=== PATIENT | female | born 1950 | race Caucasian/White ===

== ENCOUNTER 2023-07-29 21:21 | Emergency (ER) | payer MEDICARE, OTHER, SELFPAY ==
[2023-07-29 21:23] VITALS: BP 174/76
[2023-07-29 21:38] LABS: % Basophils 0.4 % (0-2); % Eosinophils 3.3 % (0-6); % Immature Granulocytes 0.4 % (0-0.5); % Monocytes 7.4 % (1.7-9.3); % Neutrophils 68.5 % (42.2-75.2); Absolute Eosinophils 0.2 10^3/uL (0-0.7); Absolute Lymphocytes 1.4 10^3/uL (1.2-3.4); Absolute Monocytes 0.5 10^3/uL (0.1-0.6); Absolute Neutrophils 4.7 10^3/uL (1.4-6.5); Hematocrit 36.7 % (37.0-47.0); Hemoglobin 12.2 g/dL (12.0-16.0); Mean Corp Hgb Conc. 33.2 g/dL (33.0-37.0); Mean Corpuscular Hgb 30.6 pg (27.0-31.0); Mean Platelet Volume 9.6 fL (7.4-10.4); Nucleated Red Blood Cells % 0 %; Platelet Count 202 10^3/uL (130-400); Red Blood Cell Count 3.99 10^6/uL (4.20-5.40); Red Cell Dist. Width 12.6 % (11.5-14.5); White Blood Cell Count 6.9 10^3/uL (4.8-10.8)
[2023-07-29 21:59] LABS: ALT (SGPT) 33 U/L (0-35); AST (SGOT) 31 U/L (14-36); Albumin 4.3 g/dl (3.5-5.0); Alkaline Phosphatase 102 U/L (38-126); Blood Urea Nitrogen 35 mg/dl (7-17); Calcium 10.2 mg/dl (8.4-10.2); Carbon Dioxide 29 mmol/L (22-30); Chloride 105 mmol/L (98-107); Glucose 117 mg/dl (70-99); Potassium 4.7 mmol/L (3.5-5.1); Sodium 139 mmol/L (135-145); Total Bilirubin 0.3 mg/dl (0.2-1.3); Total Protein 7.4 g/dl (6.3-8.2)
[2023-07-29 23:25] VITALS: BP 151/74
--- NOTE | 2023-07-29 23:42 | ED.GENMED ---
History of Present Illness
General
Chief Complaint: Abdominal Symptoms
Source: patient
Exam Limitations: none
Time Seen by Provider: 07/29/23 23:16
Travel History
Have you had any contact with someone who has COVID-19?: No
Do you have any symptoms of coronavirus? Fever > 100 degrees, chills, cough, shortness of breath, sore throat, loss of taste or smell, muscle aches, or headache?: No
History of Present Illness
History of Present Illness:
This is a 73 year old female that comes in with c/o diarrhea. States that this started about a month ago and at first it was on and off. Then 2 weeks ago it got worse. States that last week on she went to see the PCP and they thought it was
due to medication so they stopped the medication. States that yesterday and today the diarrhea has gotten worse and if she doesn't take the Imodium she is in the bathroom every 10 min. States that she took the Imodium at 8pm and doesn't feel she
can given a stool spec. States that she wouldn't have made it here without taking it. States that she is nauseated and her stomach is making such noise. Denies any fever, chills, chest pain, SOB, vomiting, headache, dizziness, urinary burning.
Past History
Past History
ED Past Medical History: Cancer (Uterine CA, Breast CA with Lumpectomy), HTN, Hypercholesterolemia, Hypothyroidism and Other (peripheral neuropathy, Sleep apnea, )
ED Past Surgical History: , Gynecological (Hysterectomy , Right breast Lumpectomy and radiation, ), Orthopedic (Left kne replacement, ) and Other (Bilateral Cataract)
Social History
Tobacco: Non-smoker
Alcohol: Occasional
Personal:
Living: with family
Review of Systems
Review of Systems
All Other Systems: ROS reviewed and negative except as documented in HPI and ROS
Constitutional: Reports no symptoms; Denies fever or chills
EENT: Reports no symptoms
Respiratory: Reports no symptoms; Denies cough or trouble breathing
Cardiac: Reports no symptoms; Denies chest pain
ABD/GI: Reports nausea and diarrhea; Denies abdominal pain or vomiting
: Reports no symptoms; Denies dysuria, frequency or urgency
Musculoskeletal: Reports no symptoms
Skin: Reports no symptoms
Neurological: Reports no symptoms; Denies dizzy or headache
Psychiatric: Reports no symptoms
Phy Exam
General Physical Exam
General Presentation: no apparent distress
General age: appears stated age
General Skin: warm and dry
General Habitus: elderly
General Mental: alert
General Hydration: dry mucous membranes
ENT Exam
ENT Exam: TM's normal, pharynx normal and neck supple
Eye Exam
Eye Exam: EOMI
Cardiovascular Exam
Cardiovascular Exam: regular rate/rhythm, no edema, no murmur and normal peripheral pulses
Pulmonary Exam
Pulmonary Exam: lungs clear, no respiratory distress, no rales, chest non tender, no crackles, no rhonchi, no wheezing and no cough
Gastrointestinal Exam
Gastrointestinal Exam: normal bowel sounds, non tender, soft, no organomegaly, no pulsatile mass, non distended and other (Obese)
Musculoskeletal Exam
Musculoskeletal Exam: full ROM and no edema
Skin Exam
Skin Exam: normal color, warm/dry, no rash and no petechia
Psychiatric Exam
Psychiatric Exam: normal mood/affect
Course
Orders/Labs/Results
Orders:
Orders
07/29/23 21:32
CMP [Comprehensive Metabolic Panel] Urgent
Complete Blood Count/With Diff Urgent
07/29/23 23:41
0.9% Sodium Chloride 1000 ml [Nss] 1,000 ml IV BOLUS
07/30/23 00:00
CT Abd/pelvis W Iv Cont Urgent
Reason For Exam: Diarrhea, nausea, pain
Abnormal Lab Results
07/29/23
21:32
RBC 3.99 L 10^6/uL
(4.20-5.40)
Hct 36.7 L %
(37.0-47.0)
Lymphocytes % 20.0 L %
(20.5-51.1)
BUN 35 H mg/dl
(7-17)
Creatinine 1.1 H mg/dL
(0.6-1.0)
Glucose 117 H mg/dl
(70-99)
07/29/23 21:32
07/29/23 21:32
Dehydration, Glucose nonfasting,
Vital Signs
Initial and Last Documented VS:
Initial Vital Signs
Temp Pulse Resp BP Pulse Ox
98.9 F 74 24 174/76 100
07/29/23 21:23 07/29/23 21:23 07/29/23 21:23 07/29/23 21:23 07/29/23 21:23
Last Documented Vital Signs
Temp Pulse Resp BP Pulse Ox
98.9 F 74 24 151/74 97
07/29/23 21:23 07/29/23 21:23 07/29/23 21:23 07/29/23 23:25 07/29/23 23:25
MDM/Problems Addressed
Differential Diagnosis Includes:
Colitis, Dehydration. C-diff
MDM/Problems Addressed:
This is a 73 year old female that comes in with c/o diarrhea. States that for a month it was on and off. Then in the past 2 weeks this has gotten worse and today and yesterday she is having diarrhea ever 10 min if she doesn't take the Imodium.
Will check labs, give IV fluids and CT to r/o an inflammatory issues.
Back into see patient. Explained that there is no sign of colitis or diverticulitis, There are renal cyst on the both kidneys that are to small to characterize. Patient can follow up with the Family doctor for further evaluation. Was unable to find
outpatient slip for Stool for C-diff and culture. Patient will need to see the Family doctor and her GI specialist. Patient to increase her water intake to 8-8o glasses daily. Return with any concerns.
Chronic conditions affecting care:
NA
Acute Exacerbation and/or Progression of Chronic Illness:
NA
*Radiology
Radiology exam reviewed: radiology read reviewed (CT night hawk- NO acute findings in the abdomen. NO evidence of diverticulitis or colitis. NOrmal appendix. No bowel obstruction. NO free air. Cholecystectomy. No CT signs of pancreatitis. Multiple
small bilateral renal hypoattenuating lesions, some simple cyst and others too small to characterize.) and other (CT cont- Some are intermediate density and indeterminate. Consider nonemergency renal mass protocol CT or MRI. NO concerning bone
findings. )
*Pulse Oximetry
Patient hypoxic: no
*EKG
Interpreted by ED Provider?: NA
Rate: EKG- N/A
*Adjunct Nursing Faculty Interpretation
Rate: bradycardiac
Heart Rate: 55
Rhythm: sinus (Aurelio)
*Critical Care Note
Total Time (30-74mins, 75-104mins- exclusive of procedures): Not Applicable
ED Attending Note
-
Portions of this chart may have been created with voice recognition software.� Occasional wrong word or��sound alike� substitutions may have occurred due to the inherent limitations of voice recognition software.
Discharge Plan
Departure
Patient Disposition: Home (Routine Discharge)
Date of Disposition: 07/30/23
Time of Disposition: 01:19
Patient with high blood pressure during this ER visit?: Yes
Condition: Good
Covid-19: Not Applicable
Discharge Problem:
Diarrhea
Instructions: Diarrhea in adolescents and adults
Prescriptions:
No Action
losartan 50 MG tablet
100 mg PO DAILY
atenolol 25 MG tablet
25 mg PO DAILY
levothyroxine 75 MCG tablet
75 mcg PO DAILY
triamterene-hydrochlorothiazid 1 EACH tablet
1 ea PO DAILY
Patient Comments:
37.5/25 mg
vitamin B complex 1 TAB tablet
1 tab PO DAILY
zinc 50 MG tablet
50 mg PO DAILY
duloxetine 20 MG capsule,delayed release(DR/EC)
20 mg PO QPM
alpha lipoic acid 600 MG tablet
600 mg PO DAILY Qty: 0
anastrozole 1 MG tablet
1 mg PO HS
folic acid 0.4 MG tablet
0.4 mg PO DAILY
aspirin 81 MG tablet,delayed release (DR/EC)
81 mg PO DAILY
niacin 100 MG tablet
250 mg PO DAILY
cholecalciferol (vitamin D3) 1,000 UNITS tablet
1,000 units PO DAILY
pramipexole [Mirapex ER] 0.375 MG tablet extended release 24 hr
0.375 mg PO HS
pravastatin 40 MG tablet
40 mg PO QPM
calcium carbonate [calcium] 500 MG tablet
2,000 mg PO DAILY
vitamin B complex 1 TAB tablet
1 tab PO DAILY
cannabidiol [Epidiolex] 1 UNIT solution
1 unit PO HSPRN PRN (Reason: Insomnia)
oxycodone-acetaminophen 5 MG/325 MG tablet
1 tab PO Q4HPRN PRN (Reason: moderate to severe pain) Qty: 6 0RF
Referrals:
Myesha Mitchell MD [Family Provider] - Follow up in 2-3 days
Activity Restrictions/Additional Instructions:
As discussed, your blood work here shows that you are dehydrated. Please increase your water intake to 8-8oz glasses daily. Please follow up with the family doctor for further testing such as a stool culture, Stool for C-diff and WBC's. It was also
noted on the CT scan that you have bilateral renal cyst that are to small to characterize. This can also be further evaluated by the Family doctor. Continue with the Imodium as directed. Follow up with the GI specialist for further evaluation. IF
YOU HAVE ANY OTHER CONCERNS PLEASE RETURN TO THE EMERGENCY ROOM.
Interventions
Interventions:
*Risk Screen - Suicide Last Done: 07/29/23 21:23
*Neglect/Abuse Screening Last Done: 07/29/23 21:23
Discharge Date and Time
Print Language: LEBANESE
[2023-07-29] MEDS: NSS 1000 IV (23:48)
[2023-07-30 01:28] VITALS: BP 170/68
== END 2023-07-30 01:50 | disposition home or self-care (01) ==
LOC: EMR 21:21
PROVIDERS: EMERGENCY PHYSICIAN Emergency Medicine; FAMILY PHYSICIAN Family Medicine
DX: R19.7 Diarrhea, unspecified (principal); R11.0 Nausea; N28.1 Cyst of kidney, acquired; I10 Essential (primary) hypertension; E78.00 Pure hypercholesterolemia, unspecified; E03.9 Hypothyroidism, unspecified; G62.9 Polyneuropathy, unspecified; G47.30 Sleep apnea, unspecified; Z85.3 Personal history of malignant neoplasm of breast; Z85.42 Personal history of malignant neoplasm of other parts of uterus; Z96.652 Presence of left artificial knee joint
CPT/HCPCS: 99285; 96360; 74177; 80053; 85025; Q9967

== ENCOUNTER → 2023-08-01 11:24 | Outpatient (REF) | payer MEDICARE, OTHER, SELFPAY | LOC: REG 11:24 | PROVIDERS: ATTENDING PHYSICIAN Family Medicine | DX: K52.9 Noninfective gastroenteritis and colitis, unspecified (principal) | CPT/HCPCS: 87045; 87046; 87324; 87427; 87449 ==

== ENCOUNTER → 2023-08-02 15:03 | Outpatient (REF) | payer MEDICARE, OTHER, SELFPAY | LOC: REG 15:03 | PROVIDERS: ATTENDING PHYSICIAN Family Medicine | DX: K52.9 Noninfective gastroenteritis and colitis, unspecified (principal) | CPT/HCPCS: 87045; 87046; 87077; 87324; 87427; 87449 ==

== ENCOUNTER → 2023-11-15 07:30 | Outpatient (REF) | payer MEDICARE, OTHER, SELFPAY | LOC: HWRAD 07:30 | PROVIDERS: ATTENDING PHYSICIAN Internal Medicine; FAMILY PHYSICIAN Family Medicine | DX: R15.2 Fecal urgency (principal); K52.9 Noninfective gastroenteritis and colitis, unspecified; R19.8 Other specified symptoms and signs involving the digestive system and abdomen | CPT/HCPCS: 74019 ==

== ENCOUNTER → 2023-11-16 07:59 | Outpatient (REF) | payer MEDICARE, OTHER, SELFPAY ==
[2023-11-16 10:46] LABS: CRP, Highly Sensitive 12.15 mg/L
[2023-11-16 11:04] LABS: TSH 2.44 uIU/ml (0.47-4.68)
[2023-11-19 00:32] LABS: IgA 321 mg/dl (70-400)
== END ==
LOC: REG 07:59
PROVIDERS: ATTENDING PHYSICIAN Internal Medicine; FAMILY PHYSICIAN Family Medicine
DX: K52.9 Noninfective gastroenteritis and colitis, unspecified (principal); Z74.09 Other reduced mobility; E78.5 Hyperlipidemia, unspecified
CPT/HCPCS: 36415; 82784; 83516; 83993; 84443; 86141; 86231; 87045; 87046; 87328; 87329; 87427

== ENCOUNTER → 2023-12-06 06:25 | Day surgery (SDC) | payer MEDICARE, OTHER, SELFPAY | LOC: GI 06:25 | PROVIDERS: ATTENDING PHYSICIAN Internal Medicine | DX: K52.832 Lymphocytic colitis (principal); K64.8 Other hemorrhoids; K52.9 Noninfective gastroenteritis and colitis, unspecified; K57.30 Diverticulosis of large intestine without perforation or abscess without bleeding; K62.3 Rectal prolapse | CPT/HCPCS: 45380; 88305 ==

== ENCOUNTER → 2024-03-17 11:40 | Outpatient (REF) | payer MEDICARE, OTHER, SELFPAY | LOC: WDC 11:40 | PROVIDERS: ATTENDING PHYSICIAN Family Medicine | DX: Z12.31 Encounter for screening mammogram for malignant neoplasm of breast (principal) | CPT/HCPCS: 77063; 77067 ==

== ENCOUNTER → 2024-03-20 08:58 | Outpatient (REF) | payer MEDICARE, OTHER, SELFPAY | LOC: WDC 08:58 | PROVIDERS: ATTENDING PHYSICIAN Family Medicine | DX: R92.8 Other abnormal and inconclusive findings on diagnostic imaging of breast (principal) | CPT/HCPCS: 76642 ==

== ENCOUNTER → 2024-04-30 08:26 | Outpatient (REF) | payer MEDICARE, OTHER, SELFPAY ==
[2024-04-30 09:22] LABS: % Basophils 0.7 % (0-2); % Eosinophils 3.2 % (0-6); % Immature Granulocytes 0.4 % (0-0.5); % Lymphocytes 19.9 % (20.5-51.1); % Neutrophils 68.8 % (42.2-75.2); Absolute Eosinophils 0.2 10^3/uL (0-0.7); Absolute Lymphocytes 1.1 10^3/uL (1.2-3.4); Absolute Monocytes 0.4 10^3/uL (0.1-0.6); Absolute Neutrophils 3.9 10^3/uL (1.4-6.5); Hematocrit 37.2 % (37.0-47.0); Mean Corp Hgb Conc. 32.3 g/dL (33.0-37.0); Mean Corpuscular Hgb 30.6 pg (27.0-31.0); Mean Corpuscular Volume 94.9 fL (81.0-99.0); Mean Platelet Volume 9.9 fL (7.4-10.4); Nucleated Red Blood Cells % 0 %; Platelet Count 210 10^3/uL (130-400); Red Blood Cell Count 3.92 10^6/uL (4.20-5.40); Red Cell Dist. Width 13.3 % (11.5-14.5); White Blood Cell Count 5.6 10^3/uL (4.8-10.8)
[2024-04-30 10:35] LABS: ALT (SGPT) 29 U/L (0-35); AST (SGOT) 28 U/L (14-36); Albumin 4.2 g/dl (3.5-5.0); Alkaline Phosphatase 70 U/L (38-126); Blood Urea Nitrogen 44 mg/dl (7-17); Calcium 10.2 mg/dl (8.4-10.2); Carbon Dioxide 29 mmol/L (22-30); Chloride 104 mmol/L (98-107); Glucose 95 mg/dl (70-99); HDL Cholesterol 48 mg/dl; LDL Cholesterol, Calculated 85 mg/dl; Potassium 5.1 mmol/L (3.5-5.1); Sodium 143 mmol/L (135-145); Total Bilirubin 0.5 mg/dl (0.2-1.3); Total Cholesterol 159 mg/dl (50-199); Triglyceride 134 mg/dl (10-149); Very Low Density Lipoprotein 26 mg/dl (0-30); eGFR 46.91
[2024-04-30 11:09] LABS: TSH Reflex To Free T4 2.68 uIU/ml (0.47-4.68)
== END ==
LOC: REG 08:26
PROVIDERS: ATTENDING PHYSICIAN Family Medicine
DX: E03.9 Hypothyroidism, unspecified (principal); R73.03 Prediabetes; I10 Essential (primary) hypertension; R73.9 Hyperglycemia, unspecified
CPT/HCPCS: 36415; 80053; 80061; 83036; 84443; 85025

== ENCOUNTER → 2024-06-04 09:22 | Outpatient (REF) | payer MEDICARE, OTHER, SELFPAY ==
[2024-06-04 12:09] LABS: Blood Urea Nitrogen 42 mg/dl (7-17); Calcium 9.7 mg/dl (8.4-10.2); Carbon Dioxide 27 mmol/L (22-30); Chloride 102 mmol/L (98-107); Glucose 89 mg/dl (70-99); Sodium 139 mmol/L (135-145); eGFR 46.91
== END ==
LOC: REG 09:22
PROVIDERS: ATTENDING PHYSICIAN Family Medicine
DX: R79.89 Other specified abnormal findings of blood chemistry (principal)
CPT/HCPCS: 36415; 80048

== ENCOUNTER → 2024-06-11 11:15 | Outpatient (REF) | payer MEDICARE, OTHER, SELFPAY | LOC: HWRAD 11:15 | PROVIDERS: ATTENDING PHYSICIAN Family Medicine; REFERRING PHYSICIAN Internal Medicine Nephrology | DX: N28.9 Disorder of kidney and ureter, unspecified (principal) | CPT/HCPCS: 76770 ==

== ENCOUNTER → 2024-08-20 08:47 | Outpatient (REF) | payer MEDICARE, OTHER, SELFPAY ==
[2024-08-20 09:53] LABS: Urine Albumin Negative (Neg - Trace); Urine Bilirubin Negative (Negative); Urine Character Clear (Clear); Urine Color Yellow; Urine Glucose Negative (Negative); Urine Ketone Negative (Negative); Urine Leukocyte 2+ (Negative); Urine Nitrite Negative (Negative); Urine Occult Blood Negative (Negative); Urine Urobilinogen Negative (Neg - 1+); Urine pH 6.5 (5.0-9.0)
[2024-08-20 10:34] LABS: Urine Bacteria Many (Negative)
[2024-08-20 11:14] LABS: Protein/creatinine Ratio 0.1; Urine Protein 8 mg/dl
[2024-08-20 11:15] LABS: ALT (SGPT) 27 U/L (0-35); AST (SGOT) 27 U/L (14-36); Albumin 4.6 g/dl (3.5-5.0); Alkaline Phosphatase 61 U/L (38-126); Blood Urea Nitrogen 33 mg/dl (7-17); Carbon Dioxide 28 mmol/L (22-30); Chloride 105 mmol/L (98-107); Glucose 100 mg/dl (70-99); Potassium 5.7 mmol/L (3.5-5.1); Sodium 141 mmol/L (135-145); Total Bilirubin 0.6 mg/dl (0.2-1.3); Total Protein 7.2 g/dl (6.3-8.2); eGFR 42.62
== END ==
LOC: REG 08:47
PROVIDERS: ATTENDING PHYSICIAN Internal Medicine Nephrology; FAMILY PHYSICIAN Family Medicine
DX: N18.2 Chronic kidney disease, stage 2 (mild) (principal)
CPT/HCPCS: 36415; 80053; 81003; 81015; 82570; 84156

== ENCOUNTER → 2024-08-26 08:32 | Outpatient (REF) | payer MEDICARE, OTHER, SELFPAY ==
[2024-08-26 11:06] LABS: Blood Urea Nitrogen 33 mg/dl (7-17); Calcium 10.3 mg/dl (8.4-10.2); Carbon Dioxide 27 mmol/L (22-30); Chloride 109 mmol/L (98-107); Glucose 102 mg/dl (70-99); Sodium 142 mmol/L (135-145); eGFR 42.62
== END ==
LOC: REG 08:32
PROVIDERS: ATTENDING PHYSICIAN Internal Medicine Nephrology; FAMILY PHYSICIAN Family Medicine
DX: I10 Essential (primary) hypertension (principal); N18.2 Chronic kidney disease, stage 2 (mild); E87.5 Hyperkalemia
CPT/HCPCS: 36415; 80048

== ENCOUNTER → 2024-09-16 14:39 | Outpatient (REF) | payer MEDICARE, OTHER, SELFPAY | LOC: WDC 14:39 | PROVIDERS: ATTENDING PHYSICIAN Internal Medicine Hematology & Oncology; FAMILY PHYSICIAN Family Medicine | DX: R92.8 Other abnormal and inconclusive findings on diagnostic imaging of breast (principal) | CPT/HCPCS: 77061; 77065 ==

== ENCOUNTER 2024-12-30 21:44 | Emergency (ER) | payer MEDICARE, OTHER, SELFPAY ==
[2024-12-30 21:49] VITALS: BP 166/78
[2024-12-30 22:03] LABS: Hematocrit 37.2 % (37.0-47.0); Hemoglobin 12.1 g/dL (12.0-16.0); Mean Corp Hgb Conc. 32.5 g/dL (33.0-37.0); Mean Corpuscular Volume 92.5 fL (81.0-99.0); Nucleated Red Blood Cells % 0 %; Platelet Count 214 10^3/uL (130-400); Red Cell Dist. Width 13.2 % (11.5-14.5)
[2024-12-30 22:17] LABS: ALT (SGPT) 23 U/L (0-35); AST (SGOT) 23 U/L (14-36); Albumin 4.4 g/dl (3.5-5.0); Alkaline Phosphatase 72 U/L (38-126); Blood Urea Nitrogen 35 mg/dl (7-17); Calcium 9.8 mg/dl (8.4-10.2); Carbon Dioxide 30 mmol/L (22-30); Chloride 101 mmol/L (98-107); Glucose 110 mg/dl (70-99); Lipase 90 U/L (23-300); Potassium 4.6 mmol/L (3.5-5.1); Sodium 138 mmol/L (135-145); Total Protein 7.6 g/dl (6.3-8.2); eGFR 52.08
[2024-12-30 22:57] VITALS: BP 138/63; BMI 38.1
--- NOTE | 2024-12-30 23:56 | ED.GENMED ---
History of Present Illness
General
Chief Complaint: Abdominal Pain
Source: patient and spouse
Exam Limitations: none
Time Seen by Provider: 12/30/24 23:50
Nursing documentation reviewed up to this point in time: agreed with
History of Present Illness
History of Present Illness:
Note:
CHIEF COMPLAINT(S)
Abdominal pain.
HISTORY OF PRESENT ILLNESS
The patient is a 74-year-old female who presented with abdominal pain. The pain started at approximately 2:00 PM and is described as worsening with movement but not bothersome when sitting still. The patient denies nausea, vomiting, diarrhea, chest
pain, or any changes in urination. There is a past history of pancreatitis with significantly elevated lipase levels, but the lab work during this visit was noted to be normal, pointing away from pancreatitis. The patient has a history of
cholecystectomy following a diagnosis of gallstones. Currently, she denies any alcohol consumption or history of gallbladder issues prior to its removal. The attending physician discussed the possibility of conducting a CT scan but concluded it was
not necessary based on normal examination and lab results. The patient was comfortable with the decision to discharge with instructions to return if symptoms worsened.
PAST SURGICAL HISTORY
Cholecystectomy.
section.
PLAN
The plan is to discharge the patient with instructions to maintain a bland diet for the next few meals. The patient was advised to return to the emergency department if there is worsening pain, development of fever, chest pain, or any other
concerning symptoms.
DIFFERENTIAL DIAGNOSIS
The Differential Diagnosis includes, in no particular order and is not limited to:
1. Biliary colic
2. Cholecystitis
3. Pancreatitis
4. Peptic ulcer disease
5. Gastroesophageal reflux disease
6. Intestinal obstruction
7. Irritable bowel syndrome
8. Mesenteric ischemia
9. Diverticulitis
10. Abdominal aortic aneurysm
Disposition:
SUMMARY OF ENCOUNTER
The patient, a 74-year-old female, was seen in the emergency department for abdominal pain that began at approximately 2:00 PM. The pain worsens with movement but is not bothersome when sitting still. A thorough examination indicated a benign
abdomen, and lab work was normal, ruling out conditions such as pancreatitis. Given the normal exam results and the patients stability, a decision was made to discharge the patient with a recommendation for follow-up care.
DISPOSITION
Discharge.
ASSESSMENT
The patient presented with abdominal pain. After evaluation, conditions such as diverticulitis, appendicitis, and pancreatitis were not suspected.
PLAN
The patient is to maintain a bland diet for the next few meals and return to the emergency department if symptoms worsen or new symptoms such as fever, chest pain, or other concerning symptoms develop.
INDEPENDENT REVIEW OF LABS AND INTERPRETATION OF TESTS
My independent review of lab results showed normal values, indicating no signs of pancreatitis.
PATIENT EDUCATION AND COUNSELING
The patient was advised on maintaining a bland diet and informed about symptoms that should prompt a return to the emergency department, such as worsening pain, fever, or chest pain.
FOLLOW-UP INSTRUCTIONS
The patient was instructed to follow up with their primary care provider.
MEDICAL DECISION MAKING
- Number and Complexity of Problems Addressed: Chronic conditions affecting care include past history of pancreatitis and cholecystectomy. Differential diagnosis considerations were biliary colic, cholecystitis, pancreatitis, peptic ulcer disease,
gastroesophageal reflux disease, intestinal obstruction, irritable bowel syndrome, mesenteric ischemia, diverticulitis, and abdominal aortic aneurysm.
- Data:
Category 1: Non-emergency department records reviewed indicated normal lab values, which ruled out pancreatitis. CT imaging was considered but not ordered due to reassuring lab results and patient stability.
Category 3: Management discussed with the patient to ensure understanding and comfort with the discharge plan.
- Risk: Consideration of Admission/Observation: Escalation of care including admission/observation was considered given the complexity and risk of the patients presenting complaint, exam findings, and/or comorbidities. However, ultimately it was
determined that the patient is safe for outpatient management with close follow-up due to a reassuring work-up that did not reveal any acute life/organ-threatening processes, well-controlled symptoms, stable vital signs, and the patient being
agreeable with discharge and reliable for follow-up.
DIAGNOSIS
Abdominal pain, unspecified (R10.9).
Past History
Past History
ED Past Medical History: Cancer (Uterine CA, Breast CA with Lumpectomy), HTN, Hypercholesterolemia, Hypothyroidism and Other (peripheral neuropathy, Sleep apnea, )
ED Past Surgical History: , Gynecological (Hysterectomy , Right breast Lumpectomy and radiation, ), Orthopedic (Left kne replacement, ) and Other (Bilateral Cataract)
Social History
Tobacco: Non-smoker
Alcohol: Occasional
Personal:
Living: with family
Phy Exam
Physical Exam
Physical Exam:
Physical Exam
General: no apparent distress, not acutely ill
Neck: supple. no meningeal signs. normal posterior pharynx
Heart: s1/s2 regular rate and rhythm, no murmur. equal radial
pulses.
HEENT: Pupils equal round reactive to light, EOMI
Lungs: no acute respiratory distress. clear bilaterally
Abdomen: normal bowel sounds. not tender. no CVAT
Neuro: alert and oriented. no focal neurological deficits cranial nerves II through XII intact
Skin: no rash
Psychiatric: well kept. interactive and cooperative
Extremities: no edema. no calf tenderness. negative homans. good distal pulses
Course
Orders/Labs/Results
Orders:
Orders
12/30/24 21:56
Complete Blood Count/With Diff Urgent
Comprehensive Metabolic Panel Urgent
Lipase Urgent
Abnormal Lab Results
12/30/24
21:56
RBC 4.02 L 10^6/uL
(4.20-5.40)
MCHC 32.5 L g/dL
(33.0-37.0)
Absolute Monos (auto) 0.7 H 10^3/uL
(0.1-0.6)
Lymphocytes % 16.3 L %
(20.5-51.1)
BUN 35 H mg/dl
(7-17)
Creatinine 1.1 H mg/dL
(0.6-1.0)
Glucose 110 H mg/dl
(70-99)
12/30/24 21:56
12/30/24 21:56
Vital Signs
Initial and Last Documented VS:
Initial Vital Signs
Temp Pulse Resp BP Pulse Ox
99 F 68 20 166/78 96
12/30/24 21:49 12/30/24 21:49 12/30/24 21:49 12/30/24 21:49 12/30/24 21:49
Last Documented Vital Signs
Temp Pulse Resp BP Pulse Ox
99 F 68 20 138/63 92
12/30/24 21:49 12/30/24 21:49 12/30/24 21:49 12/30/24 22:57 12/31/24 00:00
*Pulse Oximetry
SaO2: 95
Oxygen Mode of Delivery: Room air
Patient hypoxic: no
*Critical Care Note
Total Time (30-74mins, 75-104mins- exclusive of procedures): Not Applicable
ED Attending Note
-
Portions of this chart may have been created with voice recognition software.� Occasional wrong word or��sound alike� substitutions may have occurred due to the inherent limitations of voice recognition software.
Discharge Plan
Departure
Patient Disposition: Home (Routine Discharge)
Date of Disposition: 12/31/24
Time of Disposition: 00:10
Patient with high blood pressure during this ER visit?: Yes
Condition: Good
Discharge Problem:
Abdominal pain
Instructions: Abdominal Pain, BLOOD PRESSURE
Prescriptions:
No Action
losartan 50 MG tablet
100 mg PO DAILY
atenolol 25 MG tablet
25 mg PO DAILY
levothyroxine 75 MCG tablet
75 mcg PO DAILY
triamterene-hydrochlorothiazid 1 EACH tablet
1 ea PO DAILY
Patient Comments:
37.5/25 mg
vitamin B complex 1 TAB tablet
1 tab PO DAILY
zinc 50 MG tablet
50 mg PO DAILY
duloxetine 20 MG capsule,delayed release(DR/EC)
20 mg PO QPM
alpha lipoic acid 600 MG tablet
600 mg PO DAILY Qty: 0
anastrozole 1 MG tablet
1 mg PO HS
folic acid 0.4 MG tablet
0.4 mg PO DAILY
aspirin 81 MG tablet,delayed release (DR/EC)
81 mg PO DAILY
niacin 100 MG tablet
250 mg PO DAILY
cholecalciferol (vitamin D3) 1,000 UNITS tablet
1,000 units PO DAILY
pramipexole [Mirapex ER] 0.375 MG tablet extended release 24 hr
0.375 mg PO HS
pravastatin 40 MG tablet
40 mg PO QPM
calcium carbonate [calcium] 500 MG tablet
2,000 mg PO DAILY
vitamin B complex 1 TAB tablet
1 tab PO DAILY
cannabidiol [Epidiolex] 1 UNIT solution
1 unit PO HSPRN PRN (Reason: Insomnia)
oxycodone-acetaminophen 5 MG/325 MG tablet
1 tab PO Q4HPRN PRN (Reason: moderate to severe pain) Qty: 6 0RF
Activity Restrictions/Additional Instructions:
Follow up with primary care in 3-7 days. Return for any concerns.
Interventions
Interventions:
*Risk Screen - Suicide Last Done: 12/30/24 21:49
*General Assessment Last Done: 12/30/24 22:57
*Neglect/Abuse Screening Last Done: 12/30/24 21:49
*ED- Fall Risk Assessment Last Done: 12/30/24 22:57
*ED COVID-19 Vaccine History Last Done: 12/30/24 22:57
OI-Ysxgaj-Hoayymweuq Assessment Last Done: 12/30/24 22:57
Discharge Date and Time
Print Language: SYRIAC
[2024-12-31] VITALS: BP 107/75
== END 2024-12-31 00:20 | disposition home or self-care (01) ==
LOC: EMR 21:44
PROVIDERS: EMERGENCY PHYSICIAN Emergency Medicine; FAMILY PHYSICIAN Family Medicine
DX: R10.9 Unspecified abdominal pain (principal); I10 Essential (primary) hypertension; E03.9 Hypothyroidism, unspecified; E78.00 Pure hypercholesterolemia, unspecified; G47.30 Sleep apnea, unspecified; Z85.42 Personal history of malignant neoplasm of other parts of uterus; Z87.19 Personal history of other diseases of the digestive system; Z90.49 Acquired absence of other specified parts of digestive tract; Z90.710 Acquired absence of both cervix and uterus
CPT/HCPCS: 99283; 80053; 83690; 85025

== ENCOUNTER → 2025-01-08 09:31 | Outpatient (REF) | payer MEDICARE, OTHER, SELFPAY | LOC: RAD 09:31 | PROVIDERS: ATTENDING PHYSICIAN Nurse Practitioner Adult Health; FAMILY PHYSICIAN Family Medicine | DX: M48.061 Spinal stenosis, lumbar region without neurogenic claudication (principal) | CPT/HCPCS: 72114 ==

== ENCOUNTER → 2025-01-08 19:43 | Outpatient (REF) | payer MEDICARE, OTHER, SELFPAY | LOC: PAVMRI 19:43 | PROVIDERS: ATTENDING PHYSICIAN Nurse Practitioner Adult Health; FAMILY PHYSICIAN Family Medicine | DX: M48.061 Spinal stenosis, lumbar region without neurogenic claudication (principal) | CPT/HCPCS: 72148 ==

== ENCOUNTER → 2025-02-26 08:46 | Outpatient (REF) | payer MEDICARE, OTHER, SELFPAY ==
[2025-02-26 10:34] LABS: Blood Urea Nitrogen 32 mg/dl (7-17); Calcium 9.7 mg/dl (8.4-10.2); Carbon Dioxide 29 mmol/L (22-30); Chloride 103 mmol/L (98-107); Glucose 91 mg/dl (70-99); Potassium 5.0 mmol/L (3.5-5.1); Sodium 135 mmol/L (135-145); eGFR 52.08
== END ==
LOC: REG 08:46
PROVIDERS: ATTENDING PHYSICIAN Internal Medicine Nephrology; FAMILY PHYSICIAN Family Medicine
DX: N18.2 Chronic kidney disease, stage 2 (mild) (principal)
CPT/HCPCS: 36415; 80048; 82570; 83970; 84156

== ENCOUNTER → 2025-04-07 15:03 | Outpatient (REF) | payer MEDICARE, OTHER, SELFPAY | LOC: WDC 15:03 | PROVIDERS: ATTENDING PHYSICIAN Internal Medicine Hematology & Oncology; FAMILY PHYSICIAN Family Medicine | DX: Z13.820 Encounter for screening for osteoporosis (principal); M81.0 Age-related osteoporosis without current pathological fracture; Z12.31 Encounter for screening mammogram for malignant neoplasm of breast | CPT/HCPCS: 77063; 77067 ==